=== PATIENT | male | born 1960 | race Caucasian/White ===

== ENCOUNTER 2024-09-30 00:17 | Inpatient (IN) | payer MEDICARE, OTHER ==
[~2024-09-30] VITALS: Ht 180.3 cm; Wt 116.0 kg
[2024-09-30] MEDS ORDERED: ISOVUE-370 76% 100ML VIAL As Ordered ONE (02:02)
[2024-09-30 02:05] LABS: BASO % 0.2 % (0.0-1.0); EOS % 0.1 % (0.0-3.0); HEMOGLOBIN 10.4 g/dl (13.5-17.5); LYMPH # 1.2 10^3/uL (1.5-5.0); LYMPH % 9.6 % (24.0-44.0); MEAN CORPUSCULAR HGB CONC 34.7 g/dl (32.0-36.5); MEAN CORPUSCULAR VOLUME 92.3 fl (80.0-96.0); MONO # 0.7 10^3/uL (0.0-0.8); MONO % 5.3 % (2.0-8.0); NEUTROPHILS # 10.8 10^3/uL (1.5-8.5); NEUTROPHILS % 84.3 % (36.0-66.0); PLATELET COUNT, AUTOMATED 254 10^3/uL (150-450); RED BLOOD COUNT 3.25 10^6/uL (4.30-6.10); WHITE BLOOD COUNT 12.8 10^3/uL (4.0-10.0)
[2024-09-30 03:09] LABS: KETONE, URINE AUTO RFX NEGATIVE (NEGATIVE); MUCUS, URINE RFX SMALL (NEGATIVE); NITRITE, URINE AUTO RFX NEGATIVE (NEGATIVE); RBC, URINE AUTO RFX 154 /HPF (0-3); SQUAM EPITHELIAL CELL UR AURFX 0 /HPF (0-6); URIC ACID CRYSTALS RFX SMALL
[2024-09-30 03:12] LABS: LEUKOCYTE ESTERASE UR AUTO RFX 2+ (NEGATIVE); WBC, URINE AUTO RFX 48 /HPF (0-3)
[2024-09-30] MEDS: LR 1,000 ML IV ONE (07:59)
[2024-09-30] MEDS: TAMSULOSIN 0.4 MG CAP PO ONE (08:00)
[2024-09-30 08:25] LABS: BASO % 0.3 % (0.0-1.0); EOS % 0.1 % (0.0-3.0); HEMATOCRIT 31.2 % (42.0-52.0); HEMOGLOBIN 10.7 g/dl (13.5-17.5); LYMPH % 6.6 % (24.0-44.0); MEAN CORPUSCULAR HEMOGLOBIN 31.8 pg (27.0-33.0); MEAN CORPUSCULAR HGB CONC 34.3 g/dl (32.0-36.5); MEAN CORPUSCULAR VOLUME 92.9 fl (80.0-96.0); MONO # 0.9 10^3/uL (0.0-0.8); MONO % 5.9 % (2.0-8.0); NEUTROPHILS # 12.5 10^3/uL (1.5-8.5); NEUTROPHILS % 86.6 % (36.0-66.0); PLATELET COUNT, AUTOMATED 263 10^3/uL (150-450); RED BLOOD COUNT 3.36 10^6/uL (4.30-6.10); WHITE BLOOD COUNT 14.4 10^3/uL (4.0-10.0)
[2024-09-30 08:34] LABS: ERYTHROCYTE SEDIMENTATION RATE 22 mm/hr (0-20)
[2024-09-30 08:46] LABS: PSA SCREENING 2.86 NG/ML (< 4.00)
[2024-09-30 08:53] LABS: C REACTIVE PROTEIN QUANTITATIV 7.42 MG/DL (<1.0)
[2024-09-30 08:54] LABS: ALBUMIN 3.1 G/DL (3.2-5.2); BILIRUBIN,TOTAL 1.6 MG/DL (0.3-1.2); CHOLESTEROL RISK RATIO 2.19 (<5); CREATININE FOR GFR 1.34 MG/DL (0.70-1.30); GLOMERULAR FILTRATION RATE 59.9 (>49); HDL CHOLESTEROL 34.7 MG/DL (>40); LDL CHOLESTEROL 27.5 MG/DL (<100); NON-HDL-C 41.3 MG/DL; POTASSIUM SERUM 4.9 MMOL/L (3.5-5.1); TOTAL PROTEIN 6.1 G/DL (5.7-8.2)
[2024-09-30 08:58] LABS: THYROID STIMULATING HORMONE 1.213 uIU/ML (0.55-4.78)
[2024-09-30] MEDS: amLODIPine 5 MG TAB PO SCH (09:00)
[2024-09-30] MEDS: ENTRESTO 24-26MG TABLET (SACUBITRIL/VALSARTAN) PO SCH (09:00)
[2024-09-30] MEDS: THIAMINE 100 MG TAB PO SCH (09:00)
[2024-09-30 09:03] LABS: PROCALCITONIN 0.28 ng/ml
[2024-09-30] MEDS ORDERED: METO1TAB7 PO (09:18)
[2024-09-30] MEDS ORDERED: METF10004 PO (09:18)
[2024-09-30] MEDS ORDERED: KEPP10002 PO (09:18)
[2024-09-30] MEDS ORDERED: EZET10TA21 PO (09:18)
[2024-09-30] MEDS ORDERED: ENTR1TAB PO (09:18)
[2024-09-30] MEDS ORDERED: AMLO1TAB24 PO (09:18)
[2024-09-30] MEDS ORDERED: ELIQ5TAB PO (09:18)
[2024-09-30] MEDS ORDERED: ATOR80TA59 PO (09:18)
[2024-09-30] MEDS ORDERED: LANTINJ4 SC (09:18)
[2024-09-30 09:19] LABS: HEMOGLOBIN A1c 5.5 % (4.0-6.0)
[2024-09-30] MEDS ORDERED: MED REC IN PROGRESS XX SCH (09:25)
[2024-09-30] MEDS: CALCIUM GLUCONATE 1,000 MG in DEXTROSE 5% (D5W) MINI-BAG PLU 100 ML IV ONE (10:00)
[2024-09-30] MEDS ORDERED: FOLI1TAB11 PO (10:07)
[2024-09-30] MEDS ORDERED: VITA500045 PO (10:07)
[2024-09-30] MEDS ORDERED: ASPI81CH33 PO (10:07)
[2024-09-30] MEDS ORDERED: HOME MED LIST COMPLETE! XX SCH (10:45)
[2024-09-30] MEDS: cefTRIAXone SOD 1 GM in DEXTROSE 5% (D5W) ADV/MINI-BAG 50 ML IV SCH (11:32)
[2024-09-30] MEDS: NS (Normal Saline) 0.9% 1,000 ML IV SCH (12:33)
[2024-09-30] MEDS ORDERED: GLUCAGON INJ 1MG VIAL SC PRN (13:30)
[2024-09-30] MEDS ORDERED: GLUCOSE 4 GM CHEW PO PRN (13:30)
[2024-09-30] MEDS ORDERED: DEXTROSE 50% 50ML SYRINGE IV PRN (13:30)
[2024-09-30 13:35] LABS: INR 1.41; PARTIAL THROMBOPLASTIN TIME 34.5 SECONDS (24.8-34.2); PROTHROMBIN TIME 17.6 SECONDS (12.5-14.5)
[2024-09-30 15:45] VITALS: BP 133/67; TEMP 98.2; O2SAT 93
[2024-09-30] MEDS: MULTIVITAMINS/MINERALS THERAP 1 TAB PO SCH (16:39)
[2024-09-30] MEDS: FOLIC ACID 1MG TAB PO SCH (16:39)
[2024-09-30] MEDS: ATORVASTATIN 20 MG TAB PO SCH (16:39)
[2024-09-30] MEDS: METOPROLOL SUCC. 25MG *XL* TAB PO SCH (16:40)
[2024-09-30] MEDS: INSULIN LISPRO (NovoLOG) PER UNIT SC SCH ×2 (16:41→21:00)
[2024-09-30 20:47] VITALS: BP 133/63; TEMP 99.3; O2SAT 92
[2024-09-30] MEDS: EZETIMIBE 10MG TABLET PO SCH (22:12)
[2024-09-30] MEDS: FINASTERIDE 5MG TAB PO SCH (22:12)
[2024-09-30] MEDS: LanTUS (INSULIN GLARGINE INJ) 1 UNITS/0.01 ML SC SCH (22:13)
[2024-09-30] MEDS: LORazepam 2 MG TAB PO PRN (23:19)
[2024-10-01] VITALS (10 sets, daily range): BP systolic 90–148; BP diastolic 50–84; TEMP 96.7–99.9; O2SAT 92–100
[2024-10-01] MEDS ORDERED: FINA-48 PO (08:53)
[2024-10-01] MEDS ORDERED: BACI1CAP PO (08:53)
[2024-10-01] MEDS ORDERED: CEFD1CAP9 PO (08:53)
[2024-10-01] MEDS ORDERED: TAMS-18 PO (08:53)
[2024-10-01] MEDS ORDERED: METH-855 PO (08:53)
[2024-10-01] MEDS ORDERED: TALK1KIT MC (08:53)
[2024-10-01 09:29] LABS: BASO % 0.2 % (0.0-1.0); HEMATOCRIT 30.1 % (42.0-52.0); HEMOGLOBIN 10.2 g/dl (13.5-17.5); LYMPH # 0.8 10^3/uL (1.5-5.0); LYMPH % 6.4 % (24.0-44.0); MEAN CORPUSCULAR HEMOGLOBIN 31.4 pg (27.0-33.0); MEAN CORPUSCULAR HGB CONC 33.9 g/dl (32.0-36.5); MEAN CORPUSCULAR VOLUME 92.6 fl (80.0-96.0); MONO # 0.5 10^3/uL (0.0-0.8); MONO % 3.7 % (2.0-8.0); NEUTROPHILS # 11.6 10^3/uL (1.5-8.5); NEUTROPHILS % 89.1 % (36.0-66.0); PLATELET COUNT, AUTOMATED 214 10^3/uL (150-450); RED BLOOD COUNT 3.25 10^6/uL (4.30-6.10)
[2024-10-01 09:38] LABS: ERYTHROCYTE SEDIMENTATION RATE 29 mm/hr (0-20)
[2024-10-01 10:03] LABS: CALCIUM LEVEL 8.4 MG/DL (8.3-10.6); CREATININE FOR GFR 0.98 MG/DL (0.70-1.30); GLOMERULAR FILTRATION RATE 87.2 (>49); POTASSIUM SERUM 4.3 MMOL/L (3.5-5.1)
[2024-10-01 10:15] LABS: PROCALCITONIN 0.64 ng/ml
[2024-10-01 10:21] LABS: C REACTIVE PROTEIN QUANTITATIV 12.54 MG/DL (<1.0)
[2024-10-01] MEDS: cefTRIAXone SOD 1 GM in DEXTROSE 5% (D5W) ADV/MINI-BAG 50 ML IV ONE (12:21)
[2024-10-01] MEDS: TAMSULOSIN 0.4 MG CAP PO SCH (22:00)
[2024-10-02] VITALS (8 sets, daily range): BP systolic 106–136; BP diastolic 53–75; TEMP 97.5–99.4; O2SAT 95–98
[2024-10-02 05:24] LABS: BASO % 0.1 % (0.0-1.0); EOS # 0.1 10^3/uL (0.0-0.5); EOS % 0.7 % (0.0-3.0); HEMATOCRIT 27.3 % (42.0-52.0); HEMOGLOBIN 9.4 g/dl (13.5-17.5); LYMPH # 1.4 10^3/uL (1.5-5.0); LYMPH % 14.9 % (24.0-44.0); MEAN CORPUSCULAR HEMOGLOBIN 31.6 pg (27.0-33.0); MEAN CORPUSCULAR HGB CONC 34.4 g/dl (32.0-36.5); MEAN CORPUSCULAR VOLUME 91.9 fl (80.0-96.0); MONO # 0.4 10^3/uL (0.0-0.8); MONO % 4.7 % (2.0-8.0); NEUTROPHILS # 7.4 10^3/uL (1.5-8.5); NEUTROPHILS % 79.3 % (36.0-66.0); PLATELET COUNT, AUTOMATED 214 10^3/uL (150-450); RED BLOOD COUNT 2.97 10^6/uL (4.30-6.10); WHITE BLOOD COUNT 9.4 10^3/uL (4.0-10.0)
[2024-10-02 05:50] LABS: BLOOD UREA NITROGEN 22 MG/DL (9-23); CALCIUM LEVEL 8.3 MG/DL (8.3-10.6); CARBON DIOXIDE LEVEL 24 MMOL/L (20-31); CHLORIDE LEVEL 100 MMOL/L (98-107); CREATININE FOR GFR 0.88 MG/DL (0.70-1.30); GLOMERULAR FILTRATION RATE > 90.0 (>49); GLUCOSE, FASTING 155 MG/DL (74-106); POTASSIUM SERUM 3.9 MMOL/L (3.5-5.1); SODIUM LEVEL 134 MMOL/L (136-145)
[2024-10-02] MEDS: DIGOXIN INJ 0.5 MG/2 ML AMP IV STA (07:57)
[2024-10-02] MEDS: NS (Normal Saline) 0.9% 1,000 ML IV ONE (09:09)
[2024-10-02] MEDS ORDERED: PILL CUTTER 1 EACH XX ONE (09:18)
[2024-10-02] MEDS: ENOXAPARIN 100MG/1ML SYRINGE (J1650 PER 10MG) SC SCH (11:36)
[2024-10-02] MEDS: cefTRIAXone SOD 2 GM in DEXTROSE 5% (D5W) ADV/MINI-BAG 50 ML IV SCH (11:37)
[2024-10-03 03:12] VITALS: BP 137/96; TEMP 97.7; O2SAT 98
[2024-10-03 06:12] LABS: BASO % 0.5 % (0.0-1.0); EOS # 0.1 10^3/uL (0.0-0.5); EOS % 1.4 % (0.0-3.0); HEMATOCRIT 26.7 % (42.0-52.0); HEMOGLOBIN 9.1 g/dl (13.5-17.5); LYMPH # 1.9 10^3/uL (1.5-5.0); LYMPH % 29.5 % (24.0-44.0); MEAN CORPUSCULAR HEMOGLOBIN 31.5 pg (27.0-33.0); MEAN CORPUSCULAR HGB CONC 34.1 g/dl (32.0-36.5); MEAN CORPUSCULAR VOLUME 92.4 fl (80.0-96.0); MONO # 0.5 10^3/uL (0.0-0.8); MONO % 8.3 % (2.0-8.0); NEUTROPHILS # 3.9 10^3/uL (1.5-8.5); NEUTROPHILS % 59.5 % (36.0-66.0); PLATELET COUNT, AUTOMATED 241 10^3/uL (150-450); RED BLOOD COUNT 2.89 10^6/uL (4.30-6.10); WHITE BLOOD COUNT 6.5 10^3/uL (4.0-10.0)
[2024-10-03 06:34] LABS: BLOOD UREA NITROGEN 13 MG/DL (9-23); CALCIUM LEVEL 7.8 MG/DL (8.3-10.6); CARBON DIOXIDE LEVEL 26 MMOL/L (20-31); CHLORIDE LEVEL 105 MMOL/L (98-107); CREATININE FOR GFR 0.85 MG/DL (0.70-1.30); GLOMERULAR FILTRATION RATE > 90.0 (>49); GLUCOSE, FASTING 147 MG/DL (74-106); POTASSIUM SERUM 3.8 MMOL/L (3.5-5.1); SODIUM LEVEL 139 MMOL/L (136-145)
[2024-10-03 07:52] VITALS: BP 140/81; TEMP 98.2; O2SAT 97
[2024-10-03 12:00] VITALS: BP 113/69; TEMP 98.4; O2SAT 95
[2024-10-03 16:07] VITALS: BP 169/95; TEMP 98.4; O2SAT 100
[2024-10-03 19:19] VITALS: BP 135/80; TEMP 98.5; O2SAT 99
[2024-10-03] MEDS: METOPROLOL SUCC. 25MG *XL* TAB PO SCH (20:43)
[2024-10-04 04:00] VITALS: BP 150/75
[2024-10-04 04:13] VITALS: BP 150/75; TEMP 97.9; O2SAT 99
[2024-10-04 04:57] LABS: BASO % 0.6 % (0.0-1.0); EOS # 0.1 10^3/uL (0.0-0.5); HEMATOCRIT 27.7 % (42.0-52.0); HEMOGLOBIN 9.5 g/dl (13.5-17.5); LYMPH # 1.8 10^3/uL (1.5-5.0); LYMPH % 32.1 % (24.0-44.0); MEAN CORPUSCULAR HEMOGLOBIN 31.5 pg (27.0-33.0); MEAN CORPUSCULAR HGB CONC 34.3 g/dl (32.0-36.5); MEAN CORPUSCULAR VOLUME 91.7 fl (80.0-96.0); MONO # 0.4 10^3/uL (0.0-0.8); MONO % 8.1 % (2.0-8.0); NEUTROPHILS # 3.1 10^3/uL (1.5-8.5); NEUTROPHILS % 56.3 % (36.0-66.0); PLATELET COUNT, AUTOMATED 263 10^3/uL (150-450); RED BLOOD COUNT 3.02 10^6/uL (4.30-6.10); WHITE BLOOD COUNT 5.5 10^3/uL (4.0-10.0)
[2024-10-04 05:10] LABS: BLOOD UREA NITROGEN 9 MG/DL (9-23); CALCIUM LEVEL 8.1 MG/DL (8.3-10.6); CARBON DIOXIDE LEVEL 26 MMOL/L (20-31); CHLORIDE LEVEL 105 MMOL/L (98-107); CREATININE FOR GFR 0.76 MG/DL (0.70-1.30); GLOMERULAR FILTRATION RATE > 90.0 (>49); GLUCOSE, FASTING 83 MG/DL (74-106); POTASSIUM SERUM 3.5 MMOL/L (3.5-5.1); SODIUM LEVEL 140 MMOL/L (136-145)
[2024-10-04 07:38] VITALS: BP 139/82; TEMP 98.1; O2SAT 98
[2024-10-04 07:47] LABS: HEMATOCRIT 27.9 % (42.0-52.0); HEMOGLOBIN 9.7 g/dl (13.5-17.5); MEAN CORPUSCULAR HEMOGLOBIN 31.3 pg (27.0-33.0); MEAN CORPUSCULAR HGB CONC 34.8 g/dl (32.0-36.5); PLATELET COUNT, AUTOMATED 262 10^3/uL (150-450); WHITE BLOOD COUNT 5.7 10^3/uL (4.0-10.0)
[2024-10-04 08:20] LABS: BLOOD UREA NITROGEN 8 MG/DL (9-23); CALCIUM LEVEL 8.2 MG/DL (8.3-10.6); CARBON DIOXIDE LEVEL 27 MMOL/L (20-31); CHLORIDE LEVEL 105 MMOL/L (98-107); CREATININE FOR GFR 0.74 MG/DL (0.70-1.30); GLOMERULAR FILTRATION RATE > 90.0 (>49); GLUCOSE, FASTING 70 MG/DL (74-106); POTASSIUM SERUM 3.6 MMOL/L (3.5-5.1); SODIUM LEVEL 140 MMOL/L (136-145)
[2024-10-04] MEDS: CEFDINIR 300 MG CAP PO SCH (10:12)
[2024-10-04] MEDS: APIXABAN 5 MG TAB PO SCH (10:14)
[2024-10-04] MEDS: METOPROLOL SUCC. 100MG *XL* TAB PO SCH (10:15)
[2024-10-04 20:11] VITALS: BP 153/81; TEMP 98.1; O2SAT 98
[2024-10-04 21:40] VITALS: BP 157/90; TEMP 97.9; O2SAT 97
[2024-10-04 22:00] VITALS: BP 157/90
[2024-10-05 04:03] VITALS: BP 135/76; TEMP 98.4; O2SAT 98
[2024-10-05 06:19] LABS: BASO % 0.3 % (0.0-1.0); EOS # 0.1 10^3/uL (0.0-0.5); EOS % 1.8 % (0.0-3.0); HEMOGLOBIN 9.5 g/dl (13.5-17.5); LYMPH # 1.5 10^3/uL (1.5-5.0); LYMPH % 23.7 % (24.0-44.0); MEAN CORPUSCULAR HEMOGLOBIN 30.8 pg (27.0-33.0); MEAN CORPUSCULAR HGB CONC 33.9 g/dl (32.0-36.5); MEAN CORPUSCULAR VOLUME 90.9 fl (80.0-96.0); MONO # 0.5 10^3/uL (0.0-0.8); MONO % 7.8 % (2.0-8.0); NEUTROPHILS # 4.1 10^3/uL (1.5-8.5); NEUTROPHILS % 65.4 % (36.0-66.0); PLATELET COUNT, AUTOMATED 298 10^3/uL (150-450); RED BLOOD COUNT 3.08 10^6/uL (4.30-6.10); WHITE BLOOD COUNT 6.2 10^3/uL (4.0-10.0)
[2024-10-05 06:49] LABS: BLOOD UREA NITROGEN 8 MG/DL (9-23); CARBON DIOXIDE LEVEL 28 MMOL/L (20-31); CHLORIDE LEVEL 104 MMOL/L (98-107); CREATININE FOR GFR 0.72 MG/DL (0.70-1.30); GLOMERULAR FILTRATION RATE > 90.0 (>49); GLUCOSE, FASTING 87 MG/DL (74-106); POTASSIUM SERUM 3.6 MMOL/L (3.5-5.1); SODIUM LEVEL 140 MMOL/L (136-145)
[2024-10-05 09:18] VITALS: BP 133/81
[2024-10-05 12:00] VITALS: BP 117/74; TEMP 97.9; O2SAT 93
[2024-10-06 04:21] VITALS: BP 121/67; TEMP 98.2; O2SAT 97
[2024-10-06 06:19] LABS: BASO % 0.6 % (0.0-1.0); EOS # 0.2 10^3/uL (0.0-0.5); EOS % 2.2 % (0.0-3.0); HEMATOCRIT 28.3 % (42.0-52.0); HEMOGLOBIN 9.4 g/dl (13.5-17.5); LYMPH # 1.8 10^3/uL (1.5-5.0); LYMPH % 26.5 % (24.0-44.0); MEAN CORPUSCULAR HEMOGLOBIN 30.5 pg (27.0-33.0); MEAN CORPUSCULAR HGB CONC 33.2 g/dl (32.0-36.5); MEAN CORPUSCULAR VOLUME 91.9 fl (80.0-96.0); MONO # 0.5 10^3/uL (0.0-0.8); MONO % 7.2 % (2.0-8.0); NEUTROPHILS # 4.2 10^3/uL (1.5-8.5); NEUTROPHILS % 62.5 % (36.0-66.0); PLATELET COUNT, AUTOMATED 314 10^3/uL (150-450); RED BLOOD COUNT 3.08 10^6/uL (4.30-6.10); WHITE BLOOD COUNT 6.7 10^3/uL (4.0-10.0)
[2024-10-06 06:57] LABS: BLOOD UREA NITROGEN 10 MG/DL (9-23); CALCIUM LEVEL 8.3 MG/DL (8.3-10.6); CARBON DIOXIDE LEVEL 28 MMOL/L (20-31); CHLORIDE LEVEL 103 MMOL/L (98-107); GLOMERULAR FILTRATION RATE > 90.0 (>49); GLUCOSE, FASTING 137 MG/DL (74-106); POTASSIUM SERUM 3.6 MMOL/L (3.5-5.1); SODIUM LEVEL 138 MMOL/L (136-145)
[2024-10-06 08:31] VITALS: BP 138/85
[2024-10-06 08:33] VITALS: BP 138/85
[2024-10-06] MEDS ORDERED: CEFD1CAP9 PO (10:53)
[2024-10-06 12:00] VITALS: BP 146/78; TEMP 98.3; O2SAT 97
== END 2024-10-06 14:15 | DRG 690 ==
LOC: M ED 00:17 → M ED INP 07:03 → M MSPAV 15:45 → M PCU 10-02 08:34 → M MS5PR 10-04 21:36
PROVIDERS: ADMIT General Practice; ATTEND Internal Medicine
DX: N10 Acute pyelonephritis (principal); E87.1 Hypo-osmolality and hyponatremia; D62 Acute posthemorrhagic anemia; I50.22 Chronic systolic (congestive) heart failure; J98.11 Atelectasis; I47.10 Supraventricular tachycardia, unspecified; R78.81 Bacteremia; N17.9 Acute kidney failure, unspecified; R31.0 Gross hematuria; G40.909 Epilepsy, unspecified, not intractable, without status epilepticus; F10.10 Alcohol abuse, uncomplicated; K70.9 Alcoholic liver disease, unspecified; E78.00 Pure hypercholesterolemia, unspecified; I25.10 Atherosclerotic heart disease of native coronary artery without angina pectoris; R33.9 Retention of urine, unspecified; E11.42 Type 2 diabetes mellitus with diabetic polyneuropathy; I11.0 Hypertensive heart disease with heart failure; E66.9 Obesity, unspecified; E78.5 Hyperlipidemia, unspecified; I48.91 Unspecified atrial fibrillation; N40.1 Benign prostatic hyperplasia with lower urinary tract symptoms; R26.9 Unspecified abnormalities of gait and mobility; E83.51 Hypocalcemia; I25.2 Old myocardial infarction; Z86.73 Personal history of transient ischemic attack (TIA), and cerebral infarction without residual deficits; F17.200 Nicotine dependence, unspecified, uncomplicated; Z95.2 Presence of prosthetic heart valve; K70.0 Alcoholic fatty liver; K59.00 Constipation, unspecified; Z79.899 Other long term (current) drug therapy